=== PATIENT | female | born 1980 | race Caucasian/White ===

== ENCOUNTER 2019-02-27 18:01 | Emergency (ER) | payer MEDICAID ==
[~2019-02-27] VITALS: Ht 160 cm; Wt 58.1 kg
[2019-02-27 18:06] VITALS: Ht 160 cm; Wt 58.1 kg
[2019-02-27 18:55] LABS: BASOPHIL % 0.4 % (0-2)
[2019-02-27 18:56] LABS: PLATELET COUNT 431 x10^3mcL (130-400); RED CELL DISTRIBUTION WIDTH 14.9 % (11.5-14.5)
[2019-02-27 19:11] LABS: CALCIUM 9.5 mg/dL (8.5-10.1); CARBON DIOXIDE 26.6 mmol/L (21-32); CHLORIDE SERUM 104 mmol/L (98-107); CREATININE SERUM 0.6 mg/dL (0.6-1.0); GFR1 > 60 mL/min; GLUCOSE SERUM 86 mg/dL (74-106); POTASSIUM SERUM 3.9 mmol/L (3.5-5.1); SODIUM SERUM 142 mmol/L (136-145)
[2019-02-27 19:16] LABS: ALBUMIN 3.8 g/dL (3.4-5.0); ALKALINE PHOSPHATASE 104 U/L (46-116); ALT/SGPT 17 U/L (14-59); AST/SGOT 10 U/L (15-37); BILIRUBIN TOTAL 0.48 mg/dL (0.20-1.00); LIPASE 42 IU/L (73-393)
[2019-02-27 19:37] VITALS: BP 123/81
== END 2019-02-27 19:37 | disposition home or self-care (01) ==
LOC: ED 18:01
DX: K29.70 Gastritis, unspecified, without bleeding (principal); F17.210 Nicotine dependence, cigarettes, uncomplicated; Z90.49 Acquired absence of other specified parts of digestive tract
CPT/HCPCS: 36415; 99406

== ENCOUNTER 2019-04-20 10:32 | Emergency (ER) | payer SELFPAY ==
[~2019-04-20] VITALS: Ht 157.5 cm; Wt 59.9 kg
[2019-04-20 10:37] VITALS: BP 132/79; Ht 157.5 cm; Wt 59.9 kg
== END 2019-04-20 11:22 | disposition home or self-care (01) ==
LOC: ED 10:32
DX: F25.9 Schizoaffective disorder, unspecified (principal); Z76.0 Encounter for issue of repeat prescription; Z90.49 Acquired absence of other specified parts of digestive tract